=== PATIENT | female | born 1985 | race African-American/Black ===

== ENCOUNTER 2022-03-10 15:48 | Day surgery (SDC) | payer OTHER, MEDICAID ==
[2022-03-10 16:55] VITALS: BMI 54.1
[2022-03-10] MEDS ORDERED: hydrALAZINE 20 MG/ML VIAL SLOW IVP PRN (16:58)
[2022-03-10 17:49] LABS: #Eosinphils 0.1 10x3/uL (0.0-0.5); #Neutrophils 6.5 10x3/uL (1.5-8.4); %Basophils 0.3 % (0.0-2.0); %Lymphocytes 19.8 % (18.0-47.0); %Monocytes 10.8 % (0.0-10.0); %Neutrophils 67.6 % (40.0-75.0); Hemoglobin 10.1 g/dL (12.0-15.5); Mean Corpuscular HGB CONC 32.8 g/dL (32.0-36.0); Mean Corpuscular Hemoglobin 22.9 pg (27.0-33.0); Mean Corpuscular Volume 69.7 fl (81.6-98.3); Platelet Count 326 10x3/uL (150-450); RBC Distribution Width 16.5 % (11.5-14.5); Red Blood Cell (RBC) Count 4.42 10x6/uL (3.90-5.03); White Blood Cell (WBC) Count 9.6 10x3/uL (3.5-10.5)
[2022-03-10 18:03] LABS: ALT (SGPT) 17 U/L (8-55); AST (SGOT) 18 U/L (5-34); Albumin 3.5 g/dL (3.5-5.0); Alkaline Phosphatase 153 U/L (40-110); Anion Gap 14 mmol/L (10-20); BUN (Urea Nitrogen) 9 mg/dL (7.0-18.7); Bilirubin, Total 0.3 mg/dL (0.2-1.2); Calc. Creatinine Clearance 266 mL/min (70-130); Calcium 9.7 mg/dL (7.8-10.44); Carbon Dioxide 21 mmol/L (22-29); Chloride 104 mmol/L (98-107); Globulin 3.7 g/dL (2.4-3.5); Glucose 89 mg/dL (70-105); Protein, Total 7.2 g/dL (6.0-8.3); Sodium 135 mmol/L (136-145)
[2022-03-10 18:26] LABS: Anisocytosis SLIGHT = 6-15 cells (100X) (0-5/hpf); Hypochromia SLIGHT = 6-15 cells (100X) (0-5/hpf); Microcytosis SLIGHT = 6-15 cells (100X) (0-5/hpf); Platelet Morphology Comment Appears Adequate
[2022-03-11] MEDS ORDERED: hydrOXYzine Pamoate 25 mg Capsule PO SCH (00:30)
== END 2022-03-11 02:04 | disposition home or self-care (01) ==
LOC: CSHLD/OP 15:48
PROVIDERS: ATTEND Student in an Organized Health Care Education/Training Program
DX: O36.5932 Maternal care for other known or suspected poor fetal growth, third trimester, fetus 2 (principal); O30.043 Twin pregnancy, dichorionic/diamniotic, third trimester; O13.3 Gestational [pregnancy-induced] hypertension without significant proteinuria, third trimester; O32.2XX1 Maternal care for transverse and oblique lie, fetus 1; O32.2XX2 Maternal care for transverse and oblique lie, fetus 2; O09.513 Supervision of elderly primigravida, third trimester; Z3A.32 32 weeks gestation of pregnancy; Z79.82 Long term (current) use of aspirin; Z88.0 Allergy status to penicillin
CPT/HCPCS: 36415; 76819; 80053; 85025; Q0177

== ENCOUNTER 2022-03-23 12:30 | Inpatient (IN) | payer OTHER ==
[2022-03-21 13:18] LABS: Hemoglobin 10.2 g/dL (12.0-15.5); Mean Corpuscular HGB CONC 32.4 g/dL (32.0-36.0); Mean Corpuscular Volume 71.1 fl (81.6-98.3); Platelet Count 355 10x3/uL (150-450); Red Blood Cell (RBC) Count 4.43 10x6/uL (3.90-5.03); White Blood Cell (WBC) Count 7.5 10x3/uL (3.5-10.5)
[2022-03-21 13:51] LABS: Hep B Surf Ag Non-Reactive S/CO (NonReactive)
[2022-03-21 13:55] LABS: Syphilis Antibody Nonreactive (Nonreactive); Syphilis Antibody Index 0.03 S/CO (<1.00 Non-Reactive)
[2022-03-21 13:58] LABS: HBSAg Index 0.19 S/CO (0-0.99)
[2022-03-25 06:09] VITALS: BMI 54.3
[2022-03-25] MEDS ORDERED: Famotidine/PF 20 mg/2ml Vial SLOW IVP PRN (06:22)
[2022-03-25] MEDS ORDERED: Ondansetron PF 4 MG/2 ML Vial IVP PRN ×3 (06:22→10:19)
[2022-03-25] MEDS ORDERED: Lactated Ringer's 1,000 ML IV SCH (06:22)
[2022-03-25] MEDS ORDERED: Bicitra 30 ML UDCUP PO PRN (06:22)
[2022-03-25] MEDS ORDERED: hydrALAZINE 20 MG/ML VIAL SLOW IVP PRN ×2 (06:22→10:19)
[2022-03-25] MEDS ORDERED: Promethazine HCl 25 MG/ML VIAL IM PRN ×2 (06:22→08:43)
[2022-03-25] MEDS ORDERED: ceFAZolin 2 GM/Dextrose 50 ML 2 GM in Premix Bag 1 BAG IVPB SCH (06:22)
[2022-03-25] MEDS ORDERED: ceFAZolin 2 GM/Dextrose 50 ML IVPB ONE (07:04)
[2022-03-25] MEDS ORDERED: Famotidine/PF 20 mg/2ml Vial ONE (07:09)
[2022-03-25] MEDS ORDERED: ePHEDrine Sulfate 50 MG/10 ML VIAL ONE (07:13)
[2022-03-25] MEDS ORDERED: Morphine PF 10 MG/10 ML VIAL ONE (07:13)
[2022-03-25] MEDS ORDERED: Ondansetron PF 4 MG/2 ML Vial ONE (07:14)
[2022-03-25] MEDS ORDERED: Oxytocin 10 UNITS/ML VIAL ONE (07:14)
[2022-03-25] MEDS ORDERED: Dexamethasone 4 mg/ml Vial ONE (07:14)
[2022-03-25] MEDS ORDERED: Glycopyrrolate 0.2 MG/ML 5 ML SYRINGE ONE (07:14)
[2022-03-25] MEDS ORDERED: PHENYLEPHRINE-NS 100 MCG/ML 10 ML SYRINGE ONE (07:14)
[2022-03-25] MEDS ORDERED: Ketorolac Tromethamine 30 MG/ML VIAL ONE (07:14)
[2022-03-25] MEDS ORDERED: Phenylephrine 40 MG/NS 250 ML 250 ML ONE (07:14)
[2022-03-25] MEDS ORDERED: Clindamycin/D5W 900 mg/50 ml Premix Bag ONE (07:24)
[2022-03-25] MEDS ORDERED: Clindamycin/D5W 900 MG in Premix Bag 1 BAG IVPB SCH (07:45)
[2022-03-25] MEDS ORDERED: Gentamicin Sulfate 120 MG in Premix Bag 1 BAG IVPB SCH (08:00)
[2022-03-25] MEDS ORDERED: Fentanyl 100 MCG/2 ML VIAL SLOW IVP PRN (08:43)
[2022-03-25] MEDS ORDERED: Naloxone HCl 0.4 mg/ml Vial IVP PRN ×2 (08:43)
[2022-03-25] MEDS ORDERED: Moisturizing Cream (Eucerin) 113 GM JAR TOP PRN (08:43)
[2022-03-25] MEDS ORDERED: Promethazine HCl 25 MG SUPP PR PRN (08:43)
[2022-03-25] MEDS ORDERED: Naloxone HCl 0.4 mg/ml Vial IV PRN (08:43)
[2022-03-25] MEDS ORDERED: diphenhydrAMINE 50 MG/ML VIAL IVP PRN (08:43)
[2022-03-25] MEDS ORDERED: Meperidine HCl/PF 25 MG/ML VIAL SLOW IVP PRN (08:43)
[2022-03-25] MEDS ORDERED: Ondansetron HCl/PF 4 MG/2 ML Vial IVP PRN (08:43)
[2022-03-25 08:44] LABS: RapidComm Collect By NURSE; pH (Cord, venous) 7.336 (7.250-7.350)
[2022-03-25] MEDS ORDERED: Ketorolac Tromethamine 30 MG/ML VIAL IVP SCH (08:45)
[2022-03-25] MEDS ORDERED: Communication Order-Pharmacy FS SCH (08:45)
[2022-03-25 08:48] LABS: RapidComm Collect By NURSE
[2022-03-25 08:52] LABS: RapidComm Collect By NURSE
[2022-03-25 08:53] LABS: RapidComm Collect By NURSE; pH (Cord, venous) 7.299 (7.250-7.350)
[2022-03-25] MEDS ORDERED: Lanolin Ointment 7 GM TUBE TOP PRN (10:19)
[2022-03-25] MEDS ORDERED: diphenhydrAMINE 25 MG CAP PO PRN (10:19)
[2022-03-25] MEDS ORDERED: Acetaminophen 325 MG TAB PO PRN (10:19)
[2022-03-25] MEDS ORDERED: Bisacodyl 10 MG SUPP PR PRN (10:19)
[2022-03-25] MEDS ORDERED: NS w/ Oxytocin 30 units 500 ML ONE (10:21)
[2022-03-25] MEDS ORDERED: Prenatal Vitamin 1 TAB PO SCH (10:30)
[2022-03-25] MEDS ORDERED: Ferrous Sulfate 325 MG TAB PO SCH (10:30)
[2022-03-25] MEDS ORDERED: Docusate 100 MG CAP PO SCH (10:30)
[2022-03-25] MEDS: Ketorolac Tromethamine 30 MG/ML VIAL IVP PRN (19:59)
[2022-03-25] MEDS: Docusate 100 MG CAP PO SCH (23:22)
[2022-03-25] MEDS: Ferrous Sulfate 325 MG TAB PO SCH (23:24)
[2022-03-26] MEDS: Ketorolac Tromethamine 30 MG/ML VIAL IVP PRN (02:34)
[2022-03-26 04:57] LABS: Hemoglobin 8.4 g/dL (12.0-15.5); Mean Corpuscular HGB CONC 30.9 g/dL (32.0-36.0); Mean Corpuscular Hemoglobin 22.6 pg (27.0-33.0); Mean Corpuscular Volume 73.3 fl (81.6-98.3); Mean Platelet Volume 11.9 fl (7.4-10.4); Platelet Count 280 10x3/uL (150-450); RBC Distribution Width 16.8 % (11.5-14.5); Red Blood Cell (RBC) Count 3.71 10x6/uL (3.90-5.03)
[2022-03-26] MEDS: Simethicone Chewable 80 MG TAB PO PRN ×3 (06:03→22:05)
[2022-03-26] MEDS: Prenatal Vitamin 1 TAB PO SCH (07:49)
[2022-03-26] MEDS: Ferrous Sulfate 325 MG TAB PO SCH ×2 (07:49→22:06)
[2022-03-26] MEDS: HYDROcodone/Acetaminophen 5/325 mg Tablet PO PRN ×3 (07:50→22:06)
[2022-03-26] MEDS: Docusate 100 MG CAP PO SCH ×2 (07:50→22:06)
[2022-03-26] MEDS ORDERED: Boostrix 0.5 ML (Tdap) VIAL IM ONE (10:19)
[2022-03-26] MEDS: Ibuprofen 800 MG TAB PO SCH ×2 (14:26→22:06)
[2022-03-27] MEDS: Simethicone Chewable 80 MG TAB PO PRN ×3 (06:09→21:55)
[2022-03-27] MEDS: Ibuprofen 800 MG TAB PO SCH ×3 (06:09→21:55)
[2022-03-27] MEDS: Prenatal Vitamin 1 TAB PO SCH (08:48)
[2022-03-27] MEDS: Docusate 100 MG CAP PO SCH ×2 (08:48→21:55)
[2022-03-27] MEDS: Ferrous Sulfate 325 MG TAB PO SCH ×2 (08:48→21:55)
[2022-03-27] MEDS: HYDROcodone/Acetaminophen 5/325 mg Tablet PO PRN ×2 (12:49→21:54)
[2022-03-28] MEDS ORDERED: Milk Of Magnesia 30 ML UDCUP PO PRN (00:07)
[2022-03-28] MEDS: Simethicone Chewable 80 MG TAB PO PRN (05:31)
[2022-03-28] MEDS: HYDROcodone/Acetaminophen 5/325 mg Tablet PO PRN (05:32)
[2022-03-28] MEDS: Ibuprofen 800 MG TAB PO SCH (05:34)
[2022-03-28 07:59] VITALS: TEMP 96.2
[2022-03-28] MEDS: Docusate 100 MG CAP PO SCH (10:31)
[2022-03-28] MEDS: Prenatal Vitamin 1 TAB PO SCH (10:31)
[2022-03-28] MEDS: Ferrous Sulfate 325 MG TAB PO SCH (10:31)
[2022-03-28 10:41] VITALS: BP 132/77
== END 2022-03-28 15:22 | disposition home or self-care (01) | DRG 787 ==
LOC: CSHLD 03-25 05:18 → CSHPP 03-25 12:06
PROVIDERS: ADMIT Student in an Organized Health Care Education/Training Program; ATTEND Student in an Organized Health Care Education/Training Program
PROC: 10D00Z1 Extraction of Products of Conception, Low, Open Approach (ICD-10-PCS; principal; 2022-03-25)
DX: O36.5932 Maternal care for other known or suspected poor fetal growth, third trimester, fetus 2 (principal); O10.92 Unspecified pre-existing hypertension complicating childbirth; O30.033 Twin pregnancy, monochorionic/diamniotic, third trimester; Z3A.34 34 weeks gestation of pregnancy; Z37.2 Twins, both liveborn; Z20.822 Contact with and (suspected) exposure to COVID-19; E66.9 Obesity, unspecified; O99.214 Obesity complicating childbirth; Z88.1 Allergy status to other antibiotic agents; Z79.899 Other long term (current) drug therapy; O99.02 Anemia complicating childbirth; D56.3 Thalassemia minor; O32.1XX2 Maternal care for breech presentation, fetus 2; O69.89X2 Labor and delivery complicated by other cord complications, fetus 2; D50.9 Iron deficiency anemia, unspecified
CPT/HCPCS: 51702; 82805; 85027; 86780; 86850; 86900; 86901; 87340; 88307; J1100; J1200; J1885; J2274; J2405; J2590; S0028; U0003; U0005

== ENCOUNTER 2022-11-01 23:37 | Emergency (ER) | payer MEDICAID, OTHER | END 2022-11-02 00:40 | disposition left against medical advice (07) | LOC: CSHERS 23:37 | DX: Z53.21 Procedure and treatment not carried out due to patient leaving prior to being seen by health care provider (principal) ==